=== PATIENT | female | born 1935 | race Caucasian/White ===

== ENCOUNTER 2021-10-06 09:53 | Emergency (ER) | payer OTHER, SELFPAY ==
[2021-10-06 10:02] VITALS: BP 93/46; PULSE 76; RESP 18; TEMP 36.3; O2SAT 100
--- NOTE | 2021-10-06 10:28 | ED.SKABFB ---
HPI - Skin/Abscess/Foreign Bdy General Chief complaint: Skin/Abscess/Foreign Body Stated complaint: rash Time Seen by Provider: 10/06/21 10:29 Source: patient, RN notes reviewed and old records reviewed Mode of arrival: ambulatory Limitations: no limitations History of Present Illness HPI narrative: 86-year-old female who presents to [facility] with complaints of 1 day history of rash to her bilateral forearms arms. Patient reports no new medications, foods, lotions,soaps or detergents or any new food. Patient has diffuse red tiny red raised lesions to forearms bilateral forearms which are itchy. Patient is on chemotherapy for breast cancer. Patient denies any shortness of breath or any trouble with swallowing. MD complaint: rash Related Data Home Medications Medication Instructions Recorded Confirmed cholecalciferol (vitamin D3) 10/06/21 dexamethasone 10/06/21 dronabinol 10/06/21 escitalopram oxalate mg 10/06/21 fenofibrate nanocrystallized mg PO 10/06/21 letrozole mg 10/06/21 metoprolol succinate PO 10/06/21 sertraline mg 10/06/21 Allergies Allergy/AdvReac Type Severity Reaction Status Date / Time No Known Allergies Allergy Unknown Unverified 04/18/13 12:10 Review of Systems Review of Systems: CONSTITUTIONAL: Denies fever, chills, or sweats. EYES: Denies visual changes, redness, or discharge. ENT: Denies rhinorrhea, congestion, sore throat, or otalgia. CARDIOVASCULAR: Denies chest pain, palpitations, or edema. RESPIRATORY: Denies cough or dyspnea. GASTROINTESTINAL: Denies abdominal pain, nausea, vomiting, or diarrhea. GENITOURINARY: Denies dysuria or hematuria. SKIN: Positive for rash to bilateral forearms with itching. MUSCULOSKELETAL: Denies back pain, joint pain, or myalgia. NEUROLOGIC: Denies headache, numbness, or weakness. PSYCHIATRIC: Denies anxiety or depression. All systems reviewed & are unremarkable except as noted in HPI and below PMFSH Past Medical History Medical History (Updated 10/07/21 @ 10:10 by Karen Rivas NP) Breast cancer Hyperlipidemia Hypertension Surgical History Surgical History (Updated 10/07/21 @ 10:12 by Karen Rivas NP) History of bladder repair surgery History of cholecystectomy History of hysterectomy History of knee replacement procedure of right knee Social History Social History (Updated 10/07/21 @ 10:08 by Kraen Rivas NP) Smoking status: Never smoker Alcohol intake: never Substance use: never Living arrangements: with family Gender identity (if verbalized by the patient): Female Comments At time of signature, agree with nursing past medical, surgical, social and family history. There is no relevant family history pertinent to the presenting complaint Exam Narrative: GENERAL: Well-appearing, well-nourished, and in no acute distress. HEAD: Normocephalic, atraumatic. EYES: PERRLA and EOMI. ENT: Nares clear, no rhinorrhea or epistaxis. Mucous membranes moist.TM'a normal, throat pink with no lesions or exudates or enlargement tonsils NECK: Supple. no lymphadenopathy CHEST: Clear to auscultation. No respiratory distress.SAO2 100% on room air HEART: Regular rate and rhythm. No murmur heard. Normal peripheral pulses. ABDOMEN: Soft, nontender, nondistended, normal active bowel sounds. EXTREMITIES: Normal range of motion. No edema. SKIN: Warm, dry, fine red raised rash scattered on forearms which is itching, no linear formations or pustules. NEURO: No focal deficits. Alert and oriented x3. Course Course Level of Care: Express Care Visit Vital Signs Vital signs: Vital Signs Temperature 36.3 C L 10/06/21 10:02 Pulse Rate 76 10/06/21 10:02 Respiratory Rate 18 10/06/21 10:02 Blood Pressure 93/46 L 10/06/21 10:02 Pulse Oximetry 100 10/06/21 10:02 Temperature 36.3 C L 10/06/21 10:02 Pulse Rate 76 10/06/21 10:02 Respiratory Rate 18 10/06/21 10:02 Blood Pressure 93/46 L 10/06/21 10:02 Pulse Oxime
== END 2021-10-06 10:55 | disposition home or self-care (01) ==
PROVIDERS: Emergency Provider Registered Nurse; PCP Family Medicine
DX: L25.9 Unspecified contact dermatitis, unspecified cause (principal); E78.5 Hyperlipidemia, unspecified; I10 Essential (primary) hypertension; C50.919 Malignant neoplasm of unspecified site of unspecified female breast; Z79.899 Other long term (current) drug therapy; Z96.651 Presence of right artificial knee joint
CPT/HCPCS: 99203; G0463

== ENCOUNTER 2022-01-25 19:38 | Emergency (ER) | payer OTHER, SELFPAY ==
--- NOTE | ~2022-01-25 | XR_ITS ---
XR facial bones min 3V DATE: 01/25/2022 20:27 INDICATION: Fell on face. Mid forehead and nasal laceration TECHNIQUE: Submental vertical, lateral, Mosley, gonzáles views were attempted. COMPARISON: None FINDINGS: The frontozygomatic sutures, orbital rims and dougherty, nasal bones and anterior maxillary spi ne appear intact. Paranasal sinuses and mastoid air cells appear normally developed and aerated. No orbital emphysema i s evident. Bilateral hyperostosis frontalis interna, not likely of any clinical significance. Degenerative changes of the cervical spine. IMPRESSION: No apparent facial fracture Reviewed, dictated and finalized at location A. IMPRESSION: No apparent facial fracture
[2022-01-25 19:43] VITALS: BP 195/78; PULSE 75; RESP 20; TEMP 36.7; O2SAT 100
[2022-01-25 20:00] VITALS: BP 195/78; PULSE 75; RESP 20; TEMP 36.7; O2SAT 100
--- NOTE | 2022-01-25 20:15 | ED.FALL ---
HPI - Fall General Chief Complaint: Fall Stated Complaint: fall Time Seen by Provider: 01/25/22 20:06 Source: patient and RN notes reviewed Mode of arrival: ambulatory Limitations: no limitations History of Present Illness HPI Narrative: 86-year-old female presented for complaint of a laceration to the forehead and bridge of nose after fall at home today. She states she tripped over the edge of her garage and landed on the concrete, face first. She did not brace herself with her hands. She denies loss of consciousness. She was not dizzy prior to the fall. She currently denies neck pain or decreased neck ROM, dizziness, nausea or vision changes. She endorses a headache and has requested a wheelchair for feeling 'unsteady.' She has abrasions to bilateral knees. The neighbor witnessed the fall and reportedly contacted the fire department who evaluated her and recommended emergency room transfer, she refused at that time. Patient does not take anticoagulants. Patient and daughter refusing transfer to emergency room at this time Related Data Home Medications Medication Instructions Recorded Confirmed escitalopram oxalate 20 mg tablet 20 mg PO DAILY 10/06/21 01/25/22 fenofibrate nanocrystallized 145 145 mg PO DAILY 10/06/21 01/25/22 mg tablet letrozole 2.5 mg tablet 2.5 mg PO DAILY 10/06/21 01/25/22 metoprolol succinate 25 mg 25 mg PO BID 10/06/21 01/25/22 tablet,extended release 24 hr sertraline 100 mg tablet 100 mg PO DAILY 10/06/21 01/25/22 everolimus (antineoplastic) 7.5 mg 7.5 mg PO DAILY 01/25/22 01/25/22 tablet (Afinitor) fulvestrant 250 mg/5 mL 500 mg IM MONTHLY 01/25/22 01/25/22 intramuscular syringe (Faslodex) meloxicam 7.5 mg tablet 7.5 mg PO DAILY 01/25/22 01/25/22 turmeric root extract 500 mg 500 mg PO DAILY 01/25/22 01/25/22 capsule Allergies Allergy/AdvReac Type Severity Reaction Status Date / Time hydrocodone Allergy Unknown Unknown Verified 01/25/22 19:56 venlafaxine [From Effexor] Allergy Unknown Unknown Verified 01/25/22 19:56 Review of Systems Review of Systems: CONSTITUTIONAL: Denies fever, chills, or sweats. EYES: Denies visual changes ENT: Denies rhinorrhea, congestion, epistaxis CARDIOVASCULAR: Denies chest pain, palpitations, or edema. RESPIRATORY: Denies cough or dyspnea. SKIN: reports open wounds to face and knees MUSCULOSKELETAL: Denies back pain, joint pain, or myalgia. NEUROLOGIC: Endorses headache, denies numbness, tingling, or weakness, dizziness All systems reviewed & are unremarkable except as noted in HPI and below PMFSH Past Medical History Medical History Breast cancer Hyperlipidemia Hypertension Surgical History Surgical History History of bladder repair surgery History of cholecystectomy History of hysterectomy History of knee replacement procedure of right knee Social History Social History Smoking status: Never smoker Alcohol intake: never Substance use: never Gender identity (if verbalized by the patient): Female Comments At time of signature, I have reviewed and agree with nursing past medical, surgical, social and family history unless otherwise noted. Please see nursing chart for further information. There is no relevant family history pertinent to the presenting complaint Exam Narrative: GENERAL: Well-appearing HEAD: Normocephalic EYES: PERRLA, EOMI, No entrapment ENT: Mucous membranes pink and moist. No rhinorrhea or epistaxis NECK: Normal AROM. Supple. No vertebral point tenderness CHEST: No respiratory distress. Clear to auscultation. HEART: Regular rate and rhythm. No murmur appreciated. Normal peripheral pulses. EXTREMITIES: Right medial knee abrasion approximately 1 inch in diameter, mild swelling; normal range of motion. No edema. SKIN: Approximately 3 cm
== END 2022-01-25 21:05 | disposition left against medical advice (07) ==
PROVIDERS: Emergency Provider Nurse Practitioner Family; PCP Family Medicine
DX: S01.81XA Laceration without foreign body of other part of head, initial encounter (principal); S01.21XA Laceration without foreign body of nose, initial encounter; W01.0XXA Fall on same level from slipping, tripping and stumbling without subsequent striking against object, initial encounter; E78.5 Hyperlipidemia, unspecified; I10 Essential (primary) hypertension; Z85.3 Personal history of malignant neoplasm of breast; Z96.651 Presence of right artificial knee joint
CPT/HCPCS: 12013; 70150; 99213; G0463